=== PATIENT | female | born 1960 | race Two or more races ===

== ENCOUNTER 2020-04-22 08:30 | Inpatient (IN) | payer OTHER ==
[~2020-04-22] VITALS: Ht 170.2 cm; Wt 79.4 kg
[~2020-04-22 08:30] MED LIST: CRESTOR5 MG PO; MICARDIS20 MG PO; NORVASC5 MG PO
[2020-04-26] MEDS ORDERED: TELMISARTAN80 MG PO (08:06)
[2020-04-29] MEDS ORDERED: DUI500 PO (08:10)
[2020-04-29] MEDS ORDERED: PERCOCET 5-3251 EACH PO (08:10)
[2020-04-29] MEDS ORDERED: ELIQUIS2.5 MG PO (08:10)
== END 2020-04-29 12:02 | DRG 470 ==
LOC: O/R 04-26 07:35 → SURG 04-26 10:21 → O/R 04-26 13:30 → SURG 04-29 12:02
PROVIDERS: ADMIT Orthopaedic Surgery; ATTEND Orthopaedic Surgery
PROC: 0SRC0J9 Replacement of Right Knee Joint with Synthetic Substitute, Cemented, Open Approach (ICD-10-PCS; principal; 2020-04-26 13:30)
DX: M17.11 Unilateral primary osteoarthritis, right knee (principal); D62 Acute posthemorrhagic anemia; J98.11 Atelectasis; I10 Essential (primary) hypertension; E66.9 Obesity, unspecified; M85.461 Solitary bone cyst, right tibia and fibula; E66.01 Morbid (severe) obesity due to excess calories; E78.5 Hyperlipidemia, unspecified

== ENCOUNTER 2025-08-17 13:11 | Outpatient (CLI) | payer OTHER ==
[~2025-08-17 13:11] MED LIST changes: +DUI500 PO; +ELIQUIS2.5 MG PO; +PERCOCET 5-3251 EACH PO; +TELMISARTAN80 MG PO
[2025-08-17 15:17] LABS: CREATININE SERUM 0.67 mg/dL (0.55-1.02); GFR 88.06
== END 2025-08-17 13:13 | disposition home or self-care (01) ==
LOC: LAB 13:11
PROVIDERS: ATTEND Radiology Diagnostic Radiology
DX: D21.21 Benign neoplasm of connective and other soft tissue of right lower limb, including hip (principal)

== ENCOUNTER 2025-08-18 09:45 | Outpatient (CLI) | payer OTHER | END 2025-08-18 09:53 | disposition home or self-care (01) | LOC: MRI 09:45 | PROVIDERS: ATTEND Student in an Organized Health Care Education/Training Program | DX: D21.21 Benign neoplasm of connective and other soft tissue of right lower limb, including hip (principal) | CPT/HCPCS: 73722; Q9965 ==

== ENCOUNTER 2025-09-06 06:00 | Day surgery (SDC) | payer OTHER ==
[2025-08-27 09:21] VITALS: BP 144/82
[2025-08-27 10:16] LABS: URINE APPEARANCE Cloudy; URINE BILIRRUBIN Negative (NEGATIVE); URINE BLOOD Trace; URINE COLOR Yellow; URINE GLUCOSE Negative (NEGATIVE); URINE KETONE Negative (NEGATIVE); URINE LEUKOCYTE Large; URINE NITRATE Negative; URINE PROTEIN 30 (NEGATIVE); URINE UROBILINOGEN 0.2 E.U./dl
[2025-08-27 10:20] LABS: URINE BACTERIA 3358.7 uL (0.0-1933); URINE EPITHELIAL CELLS 115.0 uL (0.0-38.8); URINE RBC 6.7 uL (0.0-20.8); URINE WBC 345.6 uL (0.0-23.2)
[2025-08-27 10:21] LABS: BASO % 1.0 % (0.1-1.2); EOS # 0.14 (0.04-0.54); EOS % 1.7 % (0.7-7.0); LYMPH # 3.06 (1.18-3.74); LYMPH % 36.9 % (19.3-53.1); MEAN PLATELET VOLUME 12.60 fl (9.4-12.4); MONO # 0.61 (0.24-0.82); MONO % 7.3 % (4.7-12.5); NEUT # 4.39 (1.56-6.13); NEUT % 52.9 % (34.0-71.1); RED CELL DISTRIBUTION WIDTH 12.4 % (11.6-14.4)
[2025-08-27 10:23] LABS: URINE CAST 0.29 uL (0.0-1.40)
[2025-08-27 10:29] LABS: TYPE CELLS SQUAMOUS
[2025-08-27 10:49] LABS: INR 1.04
[2025-08-27 11:17] LABS: ALT/SGPT 69.0 U/L (12-78); AST/SGOT 33.0 U/L (15-37); BILIRUBIN TOTAL 0.72 mg/dL (0.3-1.2); BUN CREA RATIO 22.0 (7.0-25.0); CREATININE SERUM 0.68 mg/dL (0.55-1.02); GFR 86.57; GLOBULINA 4.0 G/DL (2.4-3.5); GLUCOSE FASTING 155.0 mg/dL (65-100); OSMOLALITY SERUM 291.0 MOSM/KG (275-295)
[~2025-09-06] VITALS: Ht 167.6 cm; Wt 82.1 kg
[~2025-09-06 06:00] MED LIST changes: +ECOTRIN81 MG PO; +MICARDIS HCT 81 EACH PO
[2025-09-06] MEDS ORDERED: CEFAZOLIN SODIUM 1,000 MG VIAL ONE (08:03)
== END 2025-09-06 17:40 | disposition home or self-care (01) ==
LOC: CIR.AMB 06:00
PROVIDERS: ATTEND Student in an Organized Health Care Education/Training Program
DX: D17.23 Benign lipomatous neoplasm of skin and subcutaneous tissue of right leg (principal)